=== PATIENT | male | born 1990 | race American Indian/Alaskan Native ===

== ENCOUNTER 2017-08-08 21:14 | Emergency (ER) | payer SELFPAY ==
[2017-08-08 21:26] VITALS: BP 132/88
== END 2017-08-09 08:08 | disposition left against medical advice (07) ==
LOC: ED 21:14
DX: R21 Rash and other nonspecific skin eruption (principal); Z53.21 Procedure and treatment not carried out due to patient leaving prior to being seen by health care provider